=== PATIENT | female | born 1945 | race Caucasian/White ===

== ENCOUNTER → 2023-01-28 14:45 | Outpatient (BNVA) | payer MEDICARE, OTHER, SELFPAY | PROVIDERS: Visit Provider Dermatology | DX: L57.0 Actinic keratosis (principal); L30.4 Erythema intertrigo; L82.0 Inflamed seborrheic keratosis; S90.121A Contusion of right lesser toe(s) without damage to nail, initial encounter; X58.XXXA Exposure to other specified factors, initial encounter; Z12.83 Encounter for screening for malignant neoplasm of skin; B35.1 Tinea unguium; L91.8 Other hypertrophic disorders of the skin; L82.1 Other seborrheic keratosis | CPT/HCPCS: 17000; 17003; 17110; 99204 ==

== ENCOUNTER → 2023-09-08 13:01 | Outpatient (BNVA) | payer MEDICARE, OTHER, SELFPAY | PROVIDERS: Visit Provider Nurse Practitioner Family | DX: L57.0 Actinic keratosis (principal); S90.121A Contusion of right lesser toe(s) without damage to nail, initial encounter; Z12.83 Encounter for screening for malignant neoplasm of skin; B35.1 Tinea unguium; L91.8 Other hypertrophic disorders of the skin; L82.1 Other seborrheic keratosis; D48.5 Neoplasm of uncertain behavior of skin; L82.0 Inflamed seborrheic keratosis; L57.8 Other skin changes due to chronic exposure to nonionizing radiation; X58.XXXA Exposure to other specified factors, initial encounter | CPT/HCPCS: 11102; 17000; 17110; 99213 ==